=== PATIENT | male | born 1965 | race Caucasian/White ===

== ENCOUNTER 2020-07-11 12:48 | Emergency (ER) | payer OTHER ==
[2020-07-11] MEDS: Iopamidol 612 MG/ML 100 ML Bottle IVPUSH ONE (13:16)
[2020-07-11 13:17] LABS: CHLORIDE,CL 102 mmol/L (98-107); SODIUM,NA 136 mmol/L (136-145)
[2020-07-11] MEDS: Morphine 2 MG/ML SYRINGE IVPUSH ONE (13:36)
[2020-07-11] MEDS: Ondansetron 4 MG/2 ML SDV IVPUSH ONE (13:45)
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
[2020-07-11] MEDS: HYDROmorphone 1 MG/ML Syringe IVPUSH ONE (14:05)
[2020-07-11] MEDS ORDERED: Sodium Chloride 0.9% 1,000 ML IV SCH (14:15)
[2020-07-11] MEDS: Diphtheria,Pertussis(Acell),Tetanus Vaccine 0.5 ML SDV IM ONE (14:19)
== END 2020-07-11 14:40 ==
LOC: LL.ED 12:48
DX: S42.255A Nondisplaced fracture of greater tuberosity of left humerus, initial encounter for closed fracture (principal); S01.01XA Laceration without foreign body of scalp, initial encounter; I10 Essential (primary) hypertension; E11.9 Type 2 diabetes mellitus without complications; Z23 Encounter for immunization; Z79.82 Long term (current) use of aspirin; Z79.899 Other long term (current) drug therapy; Z88.2 Allergy status to sulfonamides; V23.4XXA Motorcycle driver injured in collision with car, pick-up truck or van in traffic accident, initial encounter
CPT/HCPCS: 36415; 70450; 71045; 71260; 72125; 72170; 73030; 74177; 80053; 85025; 90471; 90715; 96374; 96375; 99285; J1170; J2270; J2405; Q9967; 99284